=== PATIENT | male | born 1980 | race Caucasian/White ===

== ENCOUNTER 2017-12-18 00:07 | Emergency (ER) | payer MEDICAID, OTHER ==
[~2017-12-18] VITALS: Ht 180.3 cm; Wt 98.2 kg
[~2017-12-18 00:07] MED LIST: ALBU8HFA PO; DICL50TA8 PO; FLO0.4C PO; HYDR-569 PO; NAPR-1154 PO; NO HOME MEDS; PRED50TA PO
[2017-12-18 00:10] VITALS: BP 126/102
== END 2017-12-18 00:58 | disposition home or self-care (01) ==
LOC: ER 00:08
DX: N99.89 Other postprocedural complications and disorders of genitourinary system (principal); J45.909 Unspecified asthma, uncomplicated; G89.29 Other chronic pain; F17.210 Nicotine dependence, cigarettes, uncomplicated; Z87.442 Personal history of urinary calculi; Z98.890 Other specified postprocedural states; Z79.899 Other long term (current) drug therapy
CPT/HCPCS: 99281